=== PATIENT | female | born 1990 | race Caucasian/White ===

== ENCOUNTER 2020-05-07 20:01 | Observation (INO) | payer OTHER ==
[~2020-05-07] VITALS: Ht 162.6 cm; Wt 67.0 kg
[~2020-05-07 20:01] MED LIST: COLACE 100MG C100 MG PO; UNISOM SLEEP AI25 MG PO
[2020-05-07 22:36] LABS: HEMOGLOBIN 13.3 gm/dl (12.3-15.3); RED BLOOD COUNT 4.54 M/UL (4.00-5.10); WHITE BLOOD COUNT 14.3 K/UL (4.5-11.0)
[2020-05-07 22:49] LABS: BUN/CREATININE RATIO 13 (0-10)
[2020-05-08] MEDS ORDERED: BIOTIN1 M1 PO (03:27)
[2020-05-08] MEDS ORDERED: DAILY VALUE1 EACH PO (03:27)
[2020-05-08] MEDS ORDERED: HYDROCODON-ACE1 EAC6 PO (14:36)
[2020-05-08] MEDS ORDERED: IBUPROFEN600 MG PO (14:36)
[2020-05-08] MEDS ORDERED: COLACE 100MG C100 MG PO (14:36)
--- NOTE | 2020-05-08 15:58 | NUR ---
1530 Patient returned to Room 4110 per PACU Staff. Patient awake, alert oriented x 3. Denies pain/discomfort at this time. Small amount of bleeding noted at this time. V/S stable. Call light in reach.
--- NOTE | 2020-05-08 18:40 | NUR ---
1730 Rhogam Injection given IM in right hip. Patient tolerated well. 1830 No adaverse reaction noted from Rhogam injectiom.
== END 2020-05-08 21:33 | disposition home or self-care (01) ==
LOC: ER1 20:01 → CDU 23:58 → MED SURG 4 05-08 03:13
PROVIDERS: Physician Assistant; ADMIT Obstetrics & Gynecology
PROC: 10D17ZZ Extraction of Products of Conception, Retained, Via Natural or Artificial Opening (ICD-10-PCS; principal; 2020-05-08 14:27)
DX: O03.4 Incomplete spontaneous abortion without complication (principal); F17.200 Nicotine dependence, unspecified, uncomplicated; Z20.822 Contact with and (suspected) exposure to COVID-19
CPT/HCPCS: 80053; 81001; 84702; 85025; 86850; 86900; 86901; 87086; 96374; 96376; 99284; G0378; J1100; J1885; J2250; J2270; J2405; J2704; J2790; J2795; J3010; J7120; U0002